=== PATIENT | male | born 1975 | race Caucasian/White ===

== ENCOUNTER 2018-01-02 17:24 | Emergency (ER) | payer OTHER ==
[2018-01-02 17:51] VITALS: BP 107/65; PULSE 83; RESP 16; TEMP 98.4; O2SAT 97
--- NOTE | 2018-01-02 18:14 | RADRPT ---
EXAM DATE/TIME: 01/02/2018 18:06 [place] COMPARISON: No previous studies available for comparison. INDICATIONS : Palpitations. MEDICAL HISTORY : None. SURGICAL HISTORY : None. ENCOUNTER: Initial ACUITY: 1 day PAIN SCORE: 0/10 LOCATION: Bilateral chest FINDINGS: Trace left base atelectasis. Lungs otherwise appear clear. No pleural effusion. No pneumothorax. Heart size normal. CONCLUSION: Minimal left base atelectasis. Campbell Cardenas MD on January 02, 2018 at 18:11 Board Certified Radiologist. This report was verified electronically.
--- NOTE | 2018-01-02 19:16 | PD ---
HPI Chief Complaint: Cardiac Complaint Time Seen by Provider: 19:06 Travel History International Travel<30 days: No Contact w/Intl Traveler<30days: No Traveled to known affect area: No History of Present Illness HPI The patient is a 42-year-old male who presents to the emergency department from [facility] for palpitations. The patient states he developed palpitations earlier today that lasted several minutes. The patient felt like his heart was beating fast, he did not check his pulse at that time. He does have a intermittent history of palpitations but denies any history of syncope or known cardiac disorders. He does have a history of psychiatric problems for which he takes psychiatric medications. He denied any lightheadedness, dizziness, chest pain, shortness of breath, nausea, vomiting, or diaphoresis. The patient is currently asymptomatic. The patient is a somewhat limited historian. The patient only drinks 1 coffee daily, denies any increase ingestion of sympathomimetics or caffeine. He denies any illicit drug use. PFSH Past Medical History Narrative Medical Psychiatric disorder Past Surgical History Surgical History: No Previous Surgery Social History Alcohol Use: No Tobacco Use: Yes Substance Use: No Allergies-Medications Reported Meds & Prescriptions Reported Meds & Active Scripts Active Reported Trazodone (Trazodone HCl) 50 Mg Tab 50 Mg PO HS Olanzapine Odt (Olanzapine) 15 Mg Tab 30 Mg SL HS Docusate Sodium 100 Mg Cap 100 Mg PO DAILY Diphenhydramine (Diphenhydramine HCl) 25 Mg Cap 50 Mg PO HS PRN Clonazepam 1 Mg Tab 1 Mg PO BID Benztropine (Benztropine Mesylate) 0.5 Mg Tab 2 Mg PO HS Benztropine (Benztropine Mesylate) 0.5 Mg Tab 1 Mg PO DAILY@0600 Review of Systems Except as stated in HPI: all other systems reviewed are Neg General / Constitutional: No: Fever HENT: No: Lightheadedness Cardiovascular: Positive: Palpitations, Tachycardia, No: Chest Pain or Discomfort, Diaphoresis, Syncope, Dyspnea on exertion Respiratory: No: Shortness of Breath Gastrointestinal: No: Nausea, Vomiting, Abdominal Pain Musculoskeletal: No: Weakness Neurologic: No: Dizziness, Syncope, Focal Abnormalities, Paresthesia, Sensory Disturbance Psychiatric: Positive: Other (History of underlying psychiatric disorder), No: Substance Abuse Physical Exam Narrative GENERAL: Awake, alert, pleasant 42-year-old male who appears his stated age and is in no acute respiratory distress. SKIN: Focused skin assessment warm/dry. HEAD: Well-healed scar midline of the forehead which runs in a linear fashion from superior to inferior aspect. EYES: Pupils equal and round. 4 mm bilateral and reactive. EOMs are intact.. ENT: No nasal bleeding or discharge. Mucous membranes pink and moist. NECK: Trachea midline. No JVD. CARDIOVASCULAR: Regular rate and rhythm. No murmur appreciated. Heart rate in the 70s. RESPIRATORY: No accessory muscle use. Clear to auscultation. Breath sounds equal bilaterally. GASTROINTESTINAL: Abdomen soft, non-tender, nondistended. MUSCULOSKELETAL: No obvious deformities. No clubbing. No cyanosis. No edema. NEUROLOGICAL: Awake and alert. No obvious cranial nerve deficits. Motor grossly within normal limits. Normal speech. Nonfocal. PSYCHIATRIC: Slightly flat affect. Data Data Last Documented VS Vital Signs Date Time Temp Pulse Resp B/P (MAP) Pulse Ox O2 Delivery O2 Flow Rate FiO2 01/02/18 19:28 66 18 104/69 (81) 95 Room Air 01/02/18 17:51 98.4 Orders Orders Electrocardiogram (01/02/18 17:53) Complete Blood Count With Diff (01/02/18 17:53) Basic Metabolic Panel (Bmp) (01/02/18 17:53) Ckmb (Isoenzyme) Profile (01/02/18 17:53) Troponin I (01/02/18 17:53) Iv Access Insert/Monitor (01/02/18 17:53) Ecg Monitoring (01/02/18 17:53) Oxygen Administration (01/02/18 17:53) Oximetry (01/02/18 17:53) Chest, Pa & Lat (01/02/18 ) Thyroid Stimulating Hormone (01/02/18 19:16) Labs Laboratory Tests Test 01/02/18 19:30 White Blood Count 8.9 TH/MM3 Red Blood Count 4.68 MIL/MM3 Hemoglobin 15.0 GM/DL Hematocrit 42.0 % Mean Corpuscular Volume 89.7 FL Mean Corpuscular Hemoglobin 32.1 PG Mean Corpuscular Hemoglobin Concent 35.7 % Red Cell Distribution Width 13.8 % Platelet Count 212 TH/MM3 Mean Platelet Volume 9.5 FL Neutrophils (%) (Auto) 60.1 % Lymphocytes (%) (Auto) 29.9 % Monocytes (%) (Auto) 6.7 % Eosinophils (%) (Auto) 1.9 % Basophils (%) (Auto) 1.4 % Neutrophils # (Auto) 5.4 TH/MM3 Lymphocytes # (Auto) 2.7 TH/MM3 Monocytes # (Auto) 0.6 TH/MM3 Eosinophils # (Auto) 0.2 TH/MM3 Basophils # (Auto) 0.1 TH/MM3 CBC Comment DIFF FINAL Differential Comment Blood Urea Nitrogen 7 MG/DL Creatinine 0.75 MG/DL Random Glucose 98 MG/DL Calcium Level 8.7 MG/DL Sodium Level 139 MEQ/L Potassium Level 4.0 MEQ/L Chloride Level 109 MEQ/L Carbon Dioxide Level 23.4 MEQ/L Anion Gap 7 MEQ/L Estimat Glomerular Filtration Rate 113 ML/MIN Total Creatine Kinase 80 U/L Troponin I LESS THAN 0.02 NG/ML Thyroid Stimulating Hormone 3rd Gen 0.665 uIU/ML MDM Medical Decision Making Medical Screen Exam Complete: Yes Emergency Medical Condition: Yes Medical Record Reviewed: Yes Interpretation(s) Last Impressions Chest X-Ray 01/02/18 0000 Signed Impressions: Service Date/Time: Tuesday, January 02, 2018 18:06 - CONCLUSION: Minimal left base atelectasis. Campbell Cardenas MD EKG reveals normal sinus rhythm with a rate of 70. Moderate intraventricular conduction delay with QRS of 113 ms. QTc is 385 ms. RSR prime V1. Laboratory Tests Test 01/02/18 19:30 White Blood Count 8.9 TH/MM3 Red Blood Count 4.68 MIL/MM3 Hemoglobin 15.0 GM/DL Hematocrit 42.0 % Mean Corpuscular Volume 89.7 FL Mean Corpuscular Hemoglobin 32.1 PG Mean Corpuscular Hemoglobin Concent 35.7 % Red Cell Distribution Width 13.8 % Platelet Count 212 TH/MM3 Mean Platelet Volume 9.5 FL Neutrophils (%) (Auto) 60.1 % Lymphocytes (%) (Auto) 29.9 % Monocytes (%) (Auto) 6.7 % Eosinophils (%) (Auto) 1.9 % Basophils (%) (Auto) 1.4 % Neutrophils # (Auto) 5.4 TH/MM3 Lymphocytes # (Auto) 2.7 TH/MM3 Monocytes # (Auto) 0.6 TH/MM3 Eosinophils # (Auto) 0.2 TH/MM3 Basophils # (Auto) 0.1 TH/MM3 CBC Comment DIFF FINAL Differential Comment Blood Urea Nitrogen 7 MG/DL Creatinine 0.75 MG/DL Random Glucose 98 MG/DL Calcium Level 8.7 MG/DL Sodium Level 139 MEQ/L Potassium Level 4.0 MEQ/L Chloride Level 109 MEQ/L Carbon Dioxide Level 23.4 MEQ/L Anion Gap 7 MEQ/L Estimat Glomerular Filtration Rate 113 ML/MIN Total Creatine Kinase 80 U/L Troponin I LESS THAN 0.02 NG/ML Thyroid Stimulating Hormone 3rd Gen 0.665 uIU/ML Differential Diagnosis Differential diagnosis includes arrhythmia, palpitations, SVT, sinus tachycardia , valvular disorder, hyperthyroidism, febrile illness, dehydration, electrolyte abnormality. Narrative Course IV was established, labs are drawn and sent, the patient was placed on cardiac telemetry monitoring and continuous pulse oximetry monitoring. Chest x-ray was obtained. TSH was sent to lab. Chest x-ray was unremarkable. TSH is normal. Potassium is unremarkable. Troponin is negative. The patient was kept on telemetry monitoring, his heart rate varied from the upper 50s to the mid 70s, no evidence of ectopy or arrhythmia. Patient stable for outpatient follow-up. He may benefit from outpatient Holter monitor, echocardiogram, cardiology follow -up if symptoms persist. Diagnosis Primary Impression: Palpitations Patient Instructions: General Instructions Additional Instructions: Please provide the patient a copy of his EKG, chest x-ray results, and lab results at discharge. Follow-up with cardiology on an outpatient basis, he may benefit from Holter monitor, echocardiogram, and cardiology evaluation. Return if symptoms worsen or progress. Med/Other Pt SpecificInfo: No Change to Meds Disposition: 01 DISCHARGE HOME Condition: Stable Hamzah Ortez MD Jan 02, 2018 19:16
[2018-01-02 19:28] VITALS: BP 104/69; PULSE 66; RESP 18; O2SAT 95
[2018-01-02] MEDS ORDERED: BENZ0.5T PO ×2 (19:39)
[2018-01-02] MEDS ORDERED: DOCU100C15 PO (19:40)
[2018-01-02] MEDS ORDERED: TRAZ50TA12 PO (19:40)
[2018-01-02] MEDS ORDERED: OLAN15TA10 SL (19:40)
[2018-01-02] MEDS ORDERED: DIPH25CA PO (19:40)
[2018-01-02] MEDS ORDERED: CLON1TAB PO (19:40)
[2018-01-02 19:45] LABS: AUTOMATED NEUTROPHIL # 5.4 TH/MM3 (1.8-7.7); BASOPHIL # 0.1 TH/MM3 (0-0.2); BASOPHIL % 1.4 % (0.0-2.0); EOSINOPHIL # 0.2 TH/MM3 (0-0.4); EOSINOPHIL % 1.9 % (0.0-4.0); LYMPH % 29.9 % (9.0-44.0); LYMPHOCYTE # 2.7 TH/MM3 (1.0-4.8); MEAN CELL VOLUME 89.7 FL (80.0-100.0); MEAN CORPUSCULAR HEMOGLOBIN 32.1 PG (27.0-34.0); MEAN CORPUSCULAR HGB CONC 35.7 % (32.0-36.0); MEAN PLATELET VOLUME 9.5 FL (7.0-11.0); MONO % 6.7 % (0.0-8.0); MONOCYTE # 0.6 TH/MM3 (0-0.9); NEUT % 60.1 % (16.0-70.0); PLATELET COUNT 212 TH/MM3 (150-450); RED BLOOD COUNT 4.68 MIL/MM3 (4.50-5.90); RED CELL DISTRIBUTION WIDTH 13.8 % (11.6-17.2); WHITE BLOOD COUNT 8.9 TH/MM3 (4.0-11.0)
[2018-01-02 20:23] LABS: BICARBONATE 23.4 MEQ/L (21.0-32.0); BLOOD UREA NITROGEN 7 MG/DL (7-18); CALCIUM 8.7 MG/DL (8.5-10.1); CHLORIDE 109 MEQ/L (98-107); CREATININE 0.75 MG/DL (0.60-1.30); GLOMERULAR FILTRATION RATE 113 ML/MIN (>89); GLUCOSE,RANDOM 98 MG/DL (74-106); SODIUM (NA) 139 MEQ/L (136-145); TROPONIN I LESS THAN 0.02 NG/ML (0.02-0.05)
[2018-01-02 21:25] VITALS: BP 112/62
--- NOTE | 2018-01-03 18:34 | EKG ---
Date Performed: 01/02/2018 Time Performed: 19:16:18 PTAGE: 42 years EKG: Sinus rhythm BORDERLINE RIGHT AXIS DEVIATION MODERATE INTRAVENTRICULAR CONDUCTION DELAY BORDERLINE ECG consider i nferior MA, age indeterminate NO PREVIOUS TRACING DOCTOR: Aba Cornejo Interpretating Date/Time 01/03/2018 18:33:02
== END 2018-01-02 21:28 | disposition home or self-care (01) ==
LOC: NEPE 17:24
DX: R00.2 Palpitations (principal); R94.31 Abnormal electrocardiogram [ECG] [EKG]; Z72.0 Tobacco use; Z79.899 Other long term (current) drug therapy
CPT/HCPCS: 71046; 80048; 82550; 84443; 84484; 85025; 93005